=== PATIENT | male | born 1960 | race Caucasian/White ===

== ENCOUNTER 2020-09-06 16:21 | Outpatient (REF) | payer BC, SELFPAY ==
--- NOTE | 2020-09-06 16:27 | XR_ITS ---
EXAMINATION: XR SHOULDER, LEFT CLINICAL INFORMATION: Pain. COMPARISON: None. TECHNIQUE: AP external rotation, Grashey, scapular Y, and axillary views of the left shoulder. FINDINGS: There is no evidence of acute fracture or dislocation of the left shoulder. Calcific tendinitis is present. There is minimal spurring without narrowing of the joint space at the glenohumeral joint. No significant abnormality of the acromioclavicular joint. No widening of the coracoclavicular space. XR/XR shoulder LT min 2V IMPRESSION: Calcific tendinitis of the left shoulder.
== END 2020-09-06 16:22 | disposition home or self-care (01) ==
LOC: HO.XRAY 16:21
PROVIDERS: PCP Naturopath; Visit Provider Naturopath
DX: M75.42 Impingement syndrome of left shoulder (principal); M67.814 Other specified disorders of tendon, left shoulder; M25.512 Pain in left shoulder; M25.50 Pain in unspecified joint; R29.898 Other symptoms and signs involving the musculoskeletal system
CPT/HCPCS: 73030

== ENCOUNTER 2020-10-21 09:55 | Outpatient (REF) | payer BC, SELFPAY ==
--- NOTE | 2020-10-21 | US_ITS ---
EXAMINATION: US EXTRACRANIAL CAROTID DUPLEX, BILATERAL CLINICAL INFORMATION: This is a 60-year-old male with history of hypertension, hyperlipidemia, carotid artery disease. COMPARISON: None TECHNIQUE: Real-time ultrasound and Doppler techniques (integrating B-mode 2-D vascular images, Doppler spectral analysis and color-flow Doppler imaging) were utilized to interrogate the extracranial carotid arteries, the vertebral arteries and proximal subclavian arteries bilaterally. The degree of stenosis is determined by criteria similar to NASCET. FINDINGS: Right Side: 1. There is minimal atherosclerotic plaque seen in the bifurcation/proximal ICA region. 2. The common carotid artery PSV proximally is 178 cm/s and distally 144 cm/s. 3. The proximal internal carotid artery velocities are 73 cm/s systolic and 18 cm/s diastolic. 4. The proximal external carotid artery PSV is 152 cm/s. 5. The vertebral artery shows antegrade flow. 6. The subclavian artery waveforms are normal. Left Side: 1. There is minimal atherosclerotic plaque seen in the bifurcation/proximal ICA region. 2. The common carotid artery PSV proximally is 183 cm/s and distally 141 cm/s. 3. The proximal internal carotid artery velocities are 66 cm/s systolic and 17 cm/s diastolic. 4. The proximal external carotid artery PSV is 125 cm/s. 5. The vertebral artery shows antegrade flow. 6. The subclavian artery waveforms are normal. US/US carotid duplex BI IMPRESSION: 1. RIGHT: Minimal, non-hemodynamically significant stenosis of the proximal right internal carotid artery corresponding to a 0-49% stenosis by velocity criteria. 2. LEFT: Minimal, non-hemodynamically significant stenosis of the proximal left internal carotid artery corresponding to a 0-49% stenosis by velocity criteria.
== END 2020-10-21 09:56 | disposition home or self-care (01) ==
LOC: HO.HMGCX 09:55
PROVIDERS: PCP Naturopath; Visit Provider Naturopath
DX: Z13.6 Encounter for screening for cardiovascular disorders (principal); I25.10 Atherosclerotic heart disease of native coronary artery without angina pectoris; E78.00 Pure hypercholesterolemia, unspecified; Z91.89 Other specified personal risk factors, not elsewhere classified; I10 Essential (primary) hypertension; E78.5 Hyperlipidemia, unspecified
CPT/HCPCS: 93880

== ENCOUNTER 2020-12-09 07:15 | Outpatient (REF) | payer BC, SELFPAY ==
[2020-12-09 09:11] LABS: Anion Gap 17 (12-20); Blood Urea Nitrogen 12 mg/dL (9-16); Carbon Dioxide 24 mmol/L (22-29); Chloride 102 mmol/L (96-108); Cholesterol 160 mg/dL; Estimated Glomerular Filt Rate > 60; Glucose Fasting 83 mg/dL (60-99); HDL Cholesterol 34 mg/dL; LDL Cholesterol Calculated 93 mg/dl; Potassium 4.6 mmol/L (3.3-5.1); Sodium 138 mmol/L (135-145); Triglycerides 169 mg/dL
== END 2020-12-09 07:16 | disposition home or self-care (01) ==
LOC: HO.LAB 07:15
PROVIDERS: PCP Family Medicine; Visit Provider Family Medicine
DX: I10 Essential (primary) hypertension (principal); E78.00 Pure hypercholesterolemia, unspecified; R73.9 Hyperglycemia, unspecified
CPT/HCPCS: 36415; 80051; 80061; 82565; 82947; 84520

== ENCOUNTER 2021-06-05 07:38 | Outpatient (REF) | payer BC, SELFPAY ==
--- NOTE | ~2021-06-05 | XR_ITS ---
EXAMINATION: XR CERVICAL SPINE CLINICAL INFORMATION: Left neck pain COMPARISON: None TECHNIQUE: 6 views of the cervical spine, inclusive of flexion and extension views, were obtained. FINDINGS: There is mild straightening of cervical lordosis. The vertebral heights and alignment is normal. There is mild loss of C6-C7 disc heights with mild ventral spondylosis. Rest the disc heights are normal. No visible acute fracture or dislocation seen. The neural foramina are patent bilaterally. XR/XR cervical spine min 6V IMPRESSION: Degenerative disc changes C6-C7 disc level without acute fracture or dislocation.
== END 2021-06-05 07:39 | disposition home or self-care (01) ==
LOC: HO.XRAY 07:38
PROVIDERS: PCP Family Medicine; Visit Provider Family Medicine
DX: M54.2 Cervicalgia (principal)
CPT/HCPCS: 72052

== ENCOUNTER 2021-10-19 06:29 | Outpatient (REF) | payer BC, SELFPAY ==
[2021-10-19 08:00] LABS: Alanine Aminotransferase 99 U/L (0-40); Anion Gap 13 (12-20); Blood Urea Nitrogen 13 mg/dL (9-16); Carbon Dioxide 24 mmol/L (22-29); Chloride 105 mmol/L (96-108); Cholesterol 187 mg/dL; Estimated Glomerular Filt Rate > 60; Glucose Fasting 107 mg/dL (60-99); HDL Cholesterol 29 mg/dL; LDL Cholesterol Calculated 104 mg/dl; Potassium 4.5 mmol/L (3.3-5.1); Sodium 137 mmol/L (135-145); Triglycerides 271 mg/dL
[2021-10-19 08:24] LABS: Prostate Specific Antigen 0.68 ng/mL (<0.05-4.0)
== END 2021-10-19 06:30 | disposition home or self-care (01) ==
LOC: HO.LAB 06:29
PROVIDERS: PCP Family Medicine; Visit Provider Family Medicine
DX: R35.0 Frequency of micturition (principal); I10 Essential (primary) hypertension; E78.00 Pure hypercholesterolemia, unspecified; R73.9 Hyperglycemia, unspecified; Z79.899 Other long term (current) drug therapy
CPT/HCPCS: 36415; 80051; 80061; 82550; 82565; 82947; 84153; 84460; 84520

== ENCOUNTER 2021-11-10 16:25 | Outpatient (REF) | payer BC, SELFPAY ==
[2021-11-10 17:17] LABS: Alanine Aminotransferase 75 U/L (0-40); Aspartate Amino Transferase 44 U/L (5-37)
== END 2021-11-10 16:26 | disposition home or self-care (01) ==
LOC: HO.LAB 16:25
PROVIDERS: PCP Family Medicine; Visit Provider Family Medicine
DX: E78.00 Pure hypercholesterolemia, unspecified (principal); Z79.899 Other long term (current) drug therapy
CPT/HCPCS: 36415; 84450; 84460

== ENCOUNTER 2022-04-23 06:49 | Outpatient (REF) | payer BC, SELFPAY ==
[2022-04-23 07:55] LABS: Alanine Aminotransferase 56 U/L (0-40); Albumin Level 4.4 g/dL (3.5-5.0); Alkaline Phosphatase 53 U/L (39-117); Aspartate Amino Transferase 33 U/L (5-37); Bilirubin Direct 0.2 mg/dL (0.0-0.5); Bilirubin Total 0.4 mg/dL (0.0-1.0)
== END 2022-04-23 06:50 | disposition home or self-care (01) ==
LOC: HO.LAB 06:49
PROVIDERS: PCP Family Medicine; Visit Provider Family Medicine
DX: K75.81 Nonalcoholic steatohepatitis (NASH) (principal)
CPT/HCPCS: 36415; 80076

== ENCOUNTER 2022-07-23 06:34 | Outpatient (REF) | payer BC, SELFPAY ==
[2022-07-23 07:52] LABS: Estimated Average Glucose 111 mg/dL; Hemoglobin A1c % 5.5 %
[2022-07-23 08:13] LABS: Anion Gap 15 (12-20); Blood Urea Nitrogen 14 mg/dL (9-16); Carbon Dioxide 24 mmol/L (22-29); Chloride 108 mmol/L (96-108); Estimated Glomerular Filt Rate > 60; Glucose Fasting 103 mg/dL (60-99); Potassium 4.9 mmol/L (3.3-5.1); Sodium 142 mmol/L (135-145)
[2022-07-27 16:11] LABS: FIB-ALT 51 U/L (9-46); FIB-Alpha-2-Macroglobulin 194 mg/dL (106-279); FIB-Apolipoprotein A1 142 mg/dL (94-176); FIB-GGT 23 U/L (3-70); FIB-Haptoglobin 188 mg/dL (43-212); FIB-Total Bilirubin 0.5 mg/dL (0.2-1.2); Liver Fibrosis Score 0.21; Liver Fibrosis Stage F0-F1; Nec Inflam Act Grade A0-A1; Nec Inflam Act Score 0.27
== END 2022-07-23 06:35 | disposition home or self-care (01) ==
LOC: HO.LAB 06:34
PROVIDERS: PCP Family Medicine; Visit Provider Family Medicine
DX: I10 Essential (primary) hypertension (principal); R73.9 Hyperglycemia, unspecified; E78.00 Pure hypercholesterolemia, unspecified; K75.81 Nonalcoholic steatohepatitis (NASH)
CPT/HCPCS: 36415; 80051; 81596; 82550; 82565; 82947; 83036; 84520

== ENCOUNTER 2022-07-27 10:50 | Outpatient (REF) | payer BC, SELFPAY ==
[2022-07-27 14:34] LABS: Uric Acid 6.9 mg/dL (3.4-7.0)
== END 2022-07-27 10:51 | disposition home or self-care (01) ==
LOC: HO.10HDL 10:50
PROVIDERS: Visit Provider Family Medicine
DX: M10.9 Gout, unspecified (principal)
CPT/HCPCS: 36415; 84550

== ENCOUNTER 2023-05-08 08:42 | Outpatient (REF) | payer BC, SELFPAY ==
[2023-05-08 10:09] LABS: Estimated Average Glucose 103 mg/dL; Hemoglobin A1c % 5.2 %
[2023-05-08 10:24] LABS: Alanine Aminotransferase 41 U/L (0-40); Anion Gap 13 (12-20); Aspartate Amino Transferase 31 U/L (5-37); Blood Urea Nitrogen 12 mg/dL (9-16); Carbon Dioxide 25 mmol/L (22-29); Chloride 106 mmol/L (96-108); Estimated Glomerular Filt Rate > 60; Glucose Fasting 98 mg/dL (60-99); Potassium 4.3 mmol/L (3.3-5.1); Sodium 140 mmol/L (135-145)
== END 2023-05-08 08:43 | disposition home or self-care (01) ==
LOC: HO.10HDL 08:42
PROVIDERS: Visit Provider Family Medicine
DX: I10 Essential (primary) hypertension (principal); E11.9 Type 2 diabetes mellitus without complications; E78.00 Pure hypercholesterolemia, unspecified; Z79.01 Long term (current) use of anticoagulants
CPT/HCPCS: 36415; 80051; 82550; 82565; 82947; 83036; 84450; 84460; 84520

== ENCOUNTER 2023-09-13 09:58 | Outpatient (REF) | payer BC, SELFPAY ==
[2023-09-13 10:57] LABS: Uric Acid 9.5 mg/dL (3.4-7.0)
== END 2023-09-13 09:59 | disposition home or self-care (01) ==
LOC: HO.10HDL 09:58
PROVIDERS: Visit Provider Family Medicine
DX: M10.9 Gout, unspecified (principal)
CPT/HCPCS: 36415; 84550

== ENCOUNTER 2023-10-01 11:15 | Outpatient (REF) | payer BC, SELFPAY ==
--- NOTE | ~2023-10-01 | XR_ITS ---
EXAMINATION: XR CHEST CLINICAL INFORMATION: Cough COMPARISON: None available. TECHNIQUE: 2 views of the chest were obtained. FINDINGS: No significant abnormality is noted involving the heart, lungs, mediastinum, bony thorax or soft tissues. Symmetrical 1.1 cm nodular densities projected over the mid to lower chest likely represent nipple shadows. Repeat PA view with nipple markers could be obtained. XR/XR chest 2V IMPRESSION: 1. No pneumonia. 2. Symmetrical 1.1 cm nodular densities projected over the mid to lower chest likely represent nipple shadows. Repeat PA view with nipple markers could be obtained.
== END 2023-10-01 11:16 | disposition home or self-care (01) ==
LOC: HO.XRAY 11:15
PROVIDERS: PCP Family Medicine; Visit Provider Family Medicine
DX: R05.9 Cough, unspecified (principal); R06.2 Wheezing
CPT/HCPCS: 71046

== ENCOUNTER 2024-04-24 10:45 | Day surgery (SDC) | payer BC, SELFPAY ==
[2024-04-22 14:34] VITALS: BMI 37.2
--- OUTSIDE RECORDS SUMMARY | 2024-04-24 10:47 | XMS_ITS ---
Author Organization [facility] Address [address] [place] [id number] Care Team Providers Care Supervisor Porcelain Department Name Role Phone Antoine Morrison M.D. Primary Care Provide justice Miller Jr Daren Unavailable ALLERGIES No Known Allergies REASON FOR VISIT Patient presents today for a colon screening MEDICATIONS Medication SIG (Take, Route, Frequency, Duration) Notes Start Date End Date Status Claritin 10 MG 1 tablet Orally Once a day for 30 day(s) Active MiraLax (colon prep) 17 GM/SCOOP mixed with Gatorade or Crystal Light Orally begin at 5:00 p.m. the day before the procedure for 1 day 03/30/2024 Active Adderall XR 40mg Act jaky Robinul-Forte 2mg Ac tive Fish Oil 1000 MG 1 capsule Orally Thr ee times a day for 30 day(s) Active IMMUNIZATIONS Vaccine Route Administration Date Status Comme nts Influenza Unknown 03/30/2024 Refused SOCIAL HISTORY Sex Assigned At : Social History Observation Description Sex Assigned At Unknown Alcohol Screen Question Answer Notes Did you have a drink contain ing alcohol in the past year? Yes Points 3 Interpretation Negative How often did you have 6 or more drinks on one occasion in the past year? Never (0 point) How many drinks did you have on a typical day when you were drinking in the past year? 1 or 2 drinks (0 point) How often did you have a dri nk containing alcohol in the past year? 2 to 3 times a week (3 points) PROBLEMS Problem Type ICD Code Onset Dates Problem Status W/U Status Risk SNOMED Code Notes Problem Colon cancer screening (Z12.11) Active confirmed 438380270 Problem Pre-op evaluation (Z01.818) Active confirmed [id number] Problem Long-term current use of high risk medication other than anticoagulant (Z79.899) Active confirmed 939650863 VITAL SIGNS BMI 37.27 kg/m2 03/30/2024 Blood pressure systolic 000 mm Hg 03/30/20 24 Blood pressure diastolic 00 mm Hg 024 Height 69 in 03/30/2024 Temperature 99.5 degrees Fahrenheit 03/30/20 24 Weight 252 lb 6 oz lbs 03/30/2024 Encounters Encounter Location Date Provider Diagnosis [facility] [address] [place] [address] 03/30/2024 Daren Miller Jr Colon cancer screening Z12.11 ; Pre-op evaluation Z01.818 and Long-term current use of high risk medication other than anticoagulant Z79.899 ASSESSMENTS Encounter Date Diagnosis Assessment Notes Treatment Notes Treatment Clinical Notes 03/30/2024 Colon cancer screening (ICD-10 - Z12.11) Colonoscopy material was printed 03/30/2024 Pre-op evaluation (ICD-10 - Z01.818) 03/30/2024 Long-term current use of high risk medication other than anticoagulant (ICD-10 - Z79.899) PLAN OF TREATMENT Medication Medication Name Sig Start Date Stop Date Notes MiraLax (colon prep) 17 GM/SCOOP mixed with Gatorade or Crystal Light Orally begin at 5:00 p.m. the day before the procedure for 1 day 03/30/2024 Treatment Notes Assessment Notes Colon cancer screening Colonoscopy mater ial was printed Future Test Test Name Order Date COLONOSCOPY 03/30/2024 Next Appt Details Follow Up: 1 Year, Reason: Provider Name:Daren ford Jr, 04/24/2024 11:50:00 AM, [address] [place] [address] , [place], [place], [phone], Progress Notes * Examination Category Sub-Category Detail Notes General Examination GENERAL APPEARANCE: in no ac ely shoshone distress HEAD: normocephalic EYES: sclera non-icteric NECK/THYROID: no lymphadenopathy HEART: S1, S2 normal, no mu rmurs CHEST: normal shape and exp ansion LUNGS: clear to auscultatio n bilaterally ABDOMEN: soft, nontender, non distended, bowel sounds present, no organomegaly SKIN: anicteric EXTREMITIES: no clubbing, cyanosi s, or edema PSYCH: cognitive function i ntact ORAL CAVITY: mucosa moist
--- OUTSIDE RECORDS SUMMARY | 2024-04-24 10:47 | XMS_ITS | Continuity of Care Document ---
Author Organization [facility] [address], [address] [place] [address]- Care Team Providers Care Calcine Furnace Tender Name Role Phone Marvin Farnsworth MD Primary Care Physician Encounter [facility] Date(s): 05/17/20 - 05/24/[address], [address] [place] [address]- [facility] Attending Physician: Gloria Rogers MD Referring Physician: Marvin Farnsworth MD Allergies, Adverse Reactions, Alerts Substance Reaction Severity Status NKA Active Medications elppa CoQ10 50 mg oral capsule 1 capsule = 50 mg, By Mouth, Daily, # 30 capsule, 0 Refills, Maintenance, 05/17/20 13:09:00 EDT, Capsule Start Date: 05/17/20 Status: Ordered lisinopril 5 mg oral tablet 5 mg, 1, tablet, By Mouth, Daily, # 30 tablet, Refills 0, Maintenance, 05/17/20 13:08:00 EDT Start Date: 05/17/20 Status: Ordered Multivitamin Daily, 0 Refills, Maintenance, 05/17/20 13:09:00 EDT Start Date: 05/17/20 Status: Ordered Robinul 1 mg oral tablet 1, tablet, By Mouth, 3 times a day, # 21 tablet, Refills 0, Maintenance, 05/17/20 13:07:00 EDT Start Date: 05/17/20 Stop Date: 05/24/20 Status: Ordered simvastatin 5 mg oral tablet 1 tablet = 5 mg, By Mouth, Daily at bedtime, # 30 tablet, 0 Refills, Maintenance, 05/17/20 13:08:00EDT, Tablet Start Date: 05/17/20 Status: Ordered Turmeric 500 mg oral capsule 1 capsule = 500 mg, By Mouth, Daily, # 60 capsule, 0 Refills, Maintenance, 05/17/20 13:09:00 EDT, Capsule Start Date: 05/17/20 Status: Ordered Vital Signs Most recent to oldest [Reference Range]: 1 Height 172.70 cm (05/17/20 1:09 PM) Weight 113 kg (05/17/20 1:09 PM) Body Mass Index [18.5-24.99] 37.89 *>HHI* (05/17/20 1:09 PM) Social History Social History Type Response Smoking Status Cigars or pipes but not daily within last 30 days; Other: occational cigar smoker; entered on: 05/17/20 Sex
--- OUTSIDE RECORDS SUMMARY | 2024-04-24 10:47 | XMS_ITS ---
Author Organization [facility] Address [address] [place] [id number] Care Team Providers Care Annual Giving Director Name Role Phone Prince Humphrey [place] Primary Care Provide r Rodrigo Miller Jr, Daren Unavailable REASON FOR VISIT screening Encounters Encounter Location Date Provider Diagnosis [facility] Outpatient [address] [place] [phone] 04/24/2024 Daren Miller Jr PLAN OF TREATMENT Next Appt Details Provider Name:Daren ford Jr, 04/24/2024 11:50:00 AM, [address], [place], [phone],
--- OUTSIDE RECORDS SUMMARY | 2024-04-24 10:47 | XMS_ITS | Patient Health Record ---
Author Organization [facility] Address [address] [place] [address] Care Team Providers Care Heel Shaver Name Role Phone Antoine Morrison M.D. Primary Care Provide Daren Vazquez Jr Unavailable ALLERGIES No Known Allergies REASON FOR REFERRAL No Information MEDICATIONS Medication SIG (Take, Route, Frequency, Duration) Notes Start Date End Date Status Fish Oil 1000 MG 1 capsule Orally Thr ee times a day for 30 day(s) Active Claritin 10 MG 1 tablet Orally Once a day for 30 day(s) Active MiraLax (colon prep) 17 GM/SCOOP mixed with Gatorade or Crystal Light Orally begin at 5:00 p.m. the day before the procedure for 1 day 03/30/2024 Active Adderall XR 40mg Act jaky Robinul-Forte 2mg Ac tive IMMUNIZATIONS Vaccine Route Administration Date Status Comme nts Influenza Unknown 03/30/2024 Refused SOCIAL HISTORY Sex Assigned At : Social History Observation Description Sex Assigned At Unknown PROBLEMS Problem Type ICD Code Onset Dates Problem Status W/U Status Risk SNOMED Code Notes Problem Colon cancer screening (Z12.11) Active confirmed [id number] Problem Long-term current use of high risk medication other than anticoagulant (Z79.899) Active confirmed 876081529 Problem Pre-op evaluation (Z01.818) Active confirmed [id number] VITAL SIGNS Temperature 99.5 degrees Fahrenheit 03/30/2024 Blood pressure diastolic 00 mm Hg 03/30/2024 Height 69 in 03/30/2024 Blood pressure systolic 000 mm Hg 03/30/2024 Weight 252 lb 6 oz lbs 03/30/2024 BMI 37.27 kg/m2 03/30/2024 Encounters Encounter Location Date Provider Diagnosis [facility] Out[place] [address] [place] [id number] 04/24/2024 Daren Miller Jr [facility] [address] [place] [address] 03/30/2024 Daren Miller Jr Colon cancer screening [...] anticoagulant (ICD-10 - Z79.899) PLAN OF TREATMENT Future Test Test Name Order Date COLONOSCOPY 08/28/2013 COLONOSCOPY 03/30/2024 Next Appt Details Provider Name:Daren ford Jr, 04/24/2024 11:50:00 AM, [address] [facility] , [place], [place], [phone], Insurance Providers Payer Name Payer Address Payer Phone Subscriber Number Group Number Insured Name Patient Relationship to Insured Coverage Start Date Coverage End Date [facility] [address] [place] [address] [id number] AIMEE AGOSTO Self - patient is the insured MEDICAL (GENERAL) HISTORY Medical History History ICD Code hypertension hyperhidrosis elevated cholesterol ADD Colonoscopy 12/04, normal, ten-year follo wup Surgical History Surgery Date(Month/Year) appendectomy 1998 shoulder surgery-right 2007 knee surgery-left s-2003 2 knee surgery meniscus shoulder replacment left L5-S1 disc surgery
--- OUTSIDE RECORDS SUMMARY | 2024-04-24 10:47 | XMS_ITS | Continuity of Care Document ---
Author Organization [facility] Address [address] [place] [address]- Care Team Providers Care Nurse Orthopaedic Name Role Phone Marvin Farnsworth MD Primary Care Physician [phone] [facility] Date(s): 01/25/22 - 02/24/22 [facility] [address] [place] [address]- Allergies, Adverse Reactions, Alerts No Known Allergies Medications elppa CoQ10 50 mg oral capsule 1 capsule = 50 mg, By Mouth, Daily, # 30 capsule, 0 Refills, Maintenance, 05/17/20 13:09:00 EDT, Capsule Start Date: 05/17/20 Status: Ordered lisinopril 5 mg oral tablet 10 mg, By Mouth, Daily, # 30 tablet, Refills 0, Maintenance, 05/17/20 13:08:00 EDT Start Date: 05/17/20 Status: Ordered Multivitamin Daily, 0 Refills, Maintenance, 05/17/20 13:09:00 EDT Start Date: 05/17/20 Status: Ordered oxyCODONE 5 mg oral tablet See Instructions, 1 tablet By Mouth Every 4-6 hours, Refills 0, Tot. Refills 0, Maintenance, 06/27/21 8:56:00 EDT, Instructions Replace Required Details, Partial fill upon patient request if the prescription is for a schedule II opioid drug. Start Date: 06/27/21 Status: Ordered Robinul 1 mg oral tablet 1, tablet, By Mouth, 3 times a day, # 21 tablet, Refills 0, Maintenance, 05/17/20 13:07:00 EDT Start Date: 05/17/20 Stop Date: 05/24/20 Status: Ordered simvastatin 5 mg oral tablet = 40 mg, By Mouth, Daily at bedtime, # 30 tablet, 0 Refills, Maintenance, 05/17/20 13:08:00 EDT, Tablet Start Date: 05/17/20 Status: Ordered Social History Social History Type Response Smoking Status Cigars or pipes but not daily within last 30 days; Other: occational cigar smoker; entered on: 05/17/20 Sex
--- OUTSIDE RECORDS SUMMARY | 2024-04-24 10:47 | XMS_ITS | Continuity of Care Document ---
Author Organization [facility] [address] [place] [address]- Care Team Providers Care Director Geothermal Operations Name Role Phone Marvin Farnsworth MD Primary Care Physician Encounter [facility] [id number] Date(s): 05/17/20 - 06/16/[address], [address] [place] [address]- [facility] Attending Physician: Admtr, Ar8 Admitting Physician: Admtr, Ar8 Referring Physician: Admtr, Ar8 Allergies, Adverse Reactions, Alerts Substance Reaction Severity [...] EDT, Capsule Start Date: 05/17/20 Status: Ordered Social History Social History Type Response Smoking Status Cigars or pipes but not daily within last 30 days; Other: occational cigar smoker; entered on: 05/17/20 Sex
--- OUTSIDE RECORDS SUMMARY | 2024-04-24 10:48 | XMS_ITS | Continuity of Care Document ---
Author Organization [facility] Address [address] [facility] [place] [address]- Care Team Providers Care Associate Professor Of Library Science Name Role Phone Antoine Morrison MD Primary Care Physici an Encounter 10/24/23 - 10/31/23 [facility] [address], [address] [place] [address]- Attending Physician: Antoine Morrison MD Admitting Physician: Antoine Morrison MD Referring Physician: Antoine Morrison MD Allergies, Adverse Reactions, Alerts No Known Allergies [...] EDT, Tablet Start Date: 05/17/20 Status: Ordered Results Radiology Reports * Exam Date Time Procedure Performing Provider Status 10/24/23 2:[address] Heart W/O Dye Trey Eval Odilia Tavares; Auth (Verified) Notes: (CT Heart W/O Dye Trey Eval) Reason For Exam: E78.5 LIPIDEMIA RESULT: CT Heart W/O Dye Trey Eval CT Heart W/O Dye Trey Eval INDICATION: Reason: E78.5 LIPIDEMIA; Clinical Question(s): Other:. Male of age 63 years, race White COMPARISON: None TECHNIQUE: Coronary artery Calcium Scoring. After a localizing geoduck diver image was obtained, an ECG-gated noncontrast exam was obtained of the heart in late diastole. The region of interest was limited to the heart in order to optimize image quality. Weight-based protocol using automatic tube modulation was used to optimize exposure parameters. A Qbaka 64 scanner was used, with Agatston scoring performed using Neronote (Photoblog) web-based software. CTDIvol Body: 11.32 mGy, DLP Body: 170 mGy*cm. FINDINGS: Coronary Calcium Scoring Summary: Left Main: score 0. LAD: score 98. Circumflex: score 0. Right: score 350. TOTAL: score 449. Non-coronary Findings: No significant findings. IMPRESSION: The Agatston coronary calcium score is 449. The Multi-Ethnic Study of Atherosclerosis (WALKER) trial on-line calculator can be used to determine the probability of having coronary calcification and the calcium score percentile for subjects basedon age, gender and race/ethnicity who are free of clinical cardiovascular disease and treated diabetes: http://www.walker-nhlbi.org/Calcium/input.aspx Within this cohort, the probability of having coronary calcification is 72 %. The observed calcium score is at the 86th percentile. WSN: [id number] Ordering Physician: Antoine Morrison Dictated By: Antoine Willson MD Dictated Date/Time: 10/25/23 5:06 pm Reviewed By: Antoine Willson MD Signed By: Antoine Willson MD Signed Date/Time: 10/25/23 5:06 pm Transcribed By: ELAYNE Transcribed Date/Time: 10/25/23 5:05 pm Social History Social History Type Response Smoking Status Cigars or pipes but not daily within last 30 days; Other: occational cigar smoker; entered on: 05/17/20 Sex Patient Care team information Care Team Personnel Name: Anotine Morrison MD Position: Reference Physician Member Role: PCP Address: Address: [address] [place] [address]- Care Team Related Persons Name: MANJIT AGOSTO Address: home [address] [place] [id number]
--- OUTSIDE RECORDS SUMMARY | 2024-04-24 10:48 | XMS_ITS | Continuity of Care Document ---
Author Organization [facility] Address [address] [place] [address], [address] [place] [address]- Care Team Providers Care Freight Car Cleaner Name Role Phone Javad SKELTON, Marvin Otero Primary Care Physician [phone] Encounter [facility] Date(s): 04/07/20 - 05/07/20 [facility] [address] [place] [address], [address] [place] [address]- [facility] Allergies, Adverse Reactions, Alerts Substance Reaction Severity Status NKA Active
--- OUTSIDE RECORDS SUMMARY | 2024-04-24 10:48 | XMS_ITS | Patient Health Record ---
Author Organization [facility] Address [address] [place] [address] Care Team Providers Care Russian Teacher Name Role Phone Marvin Farnsworth MD Primary Care Provider Unavailab Katelyn Price Unavailable [phone] ALLERGIES No Known Allergies REASON FOR REFERRAL No Information MEDICATIONS Medication SIG (Take, Route, Frequency, Duration) Notes Start Date End Date Status Lisinopril 10 MG 1 tablet Orally Once a day for 30 day(s) Active Simvastatin 40 MG 1 tablet in the even ing Orally Once a day for 30 day(s) Active Ciclopirox Olamine 0.77 % 1 application Externally Twice a day for 30 days 05/08/2022 Active Glycopyrrolate 2 MG 1 tablet Orally Once a day for 30 day(s) Active SOCIAL HISTORY Tobacco Use: Social History Observation Description Date Details (start date - stop date) Never Smoker NA - NA Sex Assigned At : Social History Observation Description Sex Assigned At Unknown Tobacco Use/Smoking Question Answer Notes Are you a: nonsmoker Additional Findings: Tobacco Non-User Current no n-smoker Alcohol Screen Question Answer Notes Did you have a drink contain ing alcohol in the past year? Yes How often did you have a dri nk containing alcohol in the past year? 2 to 4 times a month (2 points) Points 2 Interpretation Negative Tobacco use other than smoking: Question Answer Notes Are you an other tobacco user? 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 [id number] PLAN OF TREATMENT Pending Test Test Name Order Date X ray : Foot, right 3V 08/09/2022 02400, [id number] INJECT TENDON ORIGIN/INSER T 09/13/2022 Insurance Providers Payer Name Payer Address Payer Phone Subscriber Number Group Number Insured Name Patient Relationship to Insured Coverage Start Date Coverage End Date [facility] [address] [place] [address] [id number] Oliver Stanford Self - patient is the insured MEDICAL (GENERAL) HISTORY Medical History History ICD Code Chicken pox High blood pressure Measles Mumps Surgical History Surgery Date(Month/Year) appendectomy 2000 laminectomy 2013 left knee, meniscus 1982, 1995, 2004 Right rotator cuff tear repair 2002, 200 4 Left rotator cuff tear repair 2021
--- NOTE | 2024-04-24 10:55 | MHC.SHP ---
Pre-Procedural Eval Section A - 24 Hr Update-Section A only Date of Service: 04/24/24 The patient is an INPATIENT: No Changes since office visit: No Cold of Flu in the past 2 weeks, No New Medical Problems, No Changes in Medication and No Patient answered all questions The patient has been examined within 24 hours of the surgical procedure. The History & Physical has been completed within 30 days and I have reviewed it.: Yes Section B - Complete if H&P > 30 days Chief Complaint: Encounter for screening for malignant neoplasm of Allergies: Allergies Allergy/AdvReac Type Severity Reaction Status Date / Time No Known Allergies Allergy Verified 04/22/24 14:31 Plan I have reviewed the history and physical and performed a pertinent physical examination on my patient. No changes have occurred unless specified. Time Spent With Patient Time: Total time managing care of this patient today ____ minutes.
[2024-04-24 10:57] VITALS: BMI 35.6
--- NOTE | 2024-04-24 10:57 | P.CONAN_ITS ---
HPI - Anesthesia Eval Consult details Narrative: for colonoscopy [facility] Past Medical History Medical History ADD (attention deficit disorder) Elevated cholesterol Hyperhidrosis HTN (hypertension) Family History Family history of problems with anesthesia: No Surgical History Surgical History Hx of lumbosacral spine surgery Hx of shoulder replacement Hx of knee surgery History of shoulder surgery Hx of appendectomy H/O colonoscopy History of Problems with Anesthesia: No Social History Social History Patient Tobacco Use Status: Never used Tobacco Advance Directives: No Advance Directives Information Provided: Yes Meds Allergies Allergy/AdvReac Type Severity Reaction Status Date / Time No Known Allergies Allergy Verified 04/22/24 14:31 Home Medications ?Medication ?Instructions ?Recorded ?Confirmed ?Last Taken ?Type Adderall XR 40 mg PO 04/22/24 Unknown History glycopyrrolate 2 mg tablet 2 mg PO TID 04/22/24 04/22/24 Unknown History (Andreina Kong) loratadine 10 mg tablet 10 mg PO DAILY 04/22/24 04/22/24 Unknown History omega 1-jfu-fom-fish oil 1,000 mg 1 cap PO TID 04/22/24 04/22/24 Unknown History (120 mg-180 mg) capsule (Fish Oil) Exam Height,Weight and Vital Signs: Height 5 ft 9 in Weight 114.305 kg Airway Mallampati Class: II TM Dist: >3cm Neck ROM: Full Heart: rrr Lungs: cta Assessment and Plan Assessment Anesthesia Assessment: Anesthesia Plan Discussed Final Anesthetic Review Family History of Problems with Anesthesia: No History of Problems with Anesthesia: No NPO: Yes ASA Class: II Final Preanesthetic Review: No Changes in Pt Med Stat, Meds/Allgs Chart Reviewed, Consent Obtained/Reviewed and Anes Risks/Benef Reviewed Patient Risk: Intermediate Procedure Risk: Low Anesthetic Plan Anesthetic Plan: MAC: Disposition: Standard PACU
[2024-04-24 11:25] VITALS: BP 165/93; PULSE 68; RESP 16; TEMP 36.1; O2SAT 96
[2024-04-24] MEDS: Lactated Ringers 1,000 ML 80 ML IVCONT (11:29)
[2024-04-24 12:08] VITALS: BP 142/84; PULSE 62; RESP 16; TEMP 36.1; O2SAT 96
[2024-04-24 12:25] VITALS: BP 138/82; PULSE 64; RESP 18; TEMP 36.1; O2SAT 99
--- NOTE | 2024-04-24 13:01 | OP_ITS ---
DATE OF SERVICE: 04/24/2024 SURGEON: Daren Miller MD INDICATIONS: Colon cancer screening. PREOPERATIVE DIAGNOSIS: POSTOPERATIVE DIAGNOSIS: PROCEDURE PERFORMED: Colonoscopy to the terminal ileum with snare polypectomy and biopsy. ESTIMATED BLOOD LOSS: COMPLICATIONS: ANESTHESIA: Monitored anesthesia care. ASSISTANTS: SPECIMENS: DESCRIPTION OF PROCEDURE: A history and physical was performed. The risks and benefits of the procedure were explained to the patient and informed consent was obtained. The patient was placed in the left lateral decubitus position. A digital rectal exam was performed and was found to be normal. The Olympus pediatric video colonoscope was introduced into the rectum and advanced to the cecum. The cecum was identified by transillumination, palpation, and identification of ileocecal valve. Examination was performed and the scope was removed. He tolerated the procedure well and was returned to recovery area in stable condition. FINDINGS: The terminal ileum was examined and appeared normal. The visualized colonic mucosa was normal. The quality of the prep was good. Three polyps were identified. Polyps at 75 cm and the rectum measured less than 5 mm. These were removed with biopsy forceps. A polyp at 40 cm was removed with a cold snare measuring approximately 6 mm. There was mild sigmoid diverticulosis. Retroflexed examination showed internal hemorrhoids. IMPRESSION: Colon polyps. RECOMMENDATION: Follow up the biopsy results. MD OMID Walls/PEARL / [id number]
== END 2024-04-24 13:15 | disposition home or self-care (01) ==
PROVIDERS: PCP Naturopath; Visit Provider Internal Medicine Gastroenterology
PROC: 0DJD8ZZ Inspection of Lower Intestinal Tract, Via Natural or Artificial Opening Endoscopic (ICD-10-PCS; CPT 45378; principal; 2024-04-24 12:40)
DX: Z12.11 Encounter for screening for malignant neoplasm of colon (principal); Z83.719 Family history of colon polyps, unspecified; D12.4 Benign neoplasm of descending colon; D12.5 Benign neoplasm of sigmoid colon; K62.1 Rectal polyp; K57.30 Diverticulosis of large intestine without perforation or abscess without bleeding; K64.8 Other hemorrhoids; I10 Essential (primary) hypertension; E78.00 Pure hypercholesterolemia, unspecified; R61 Generalized hyperhidrosis; F98.8 Other specified behavioral and emotional disorders with onset usually occurring in childhood and adolescence; Z79.899 Other long term (current) drug therapy; Z98.890 Other specified postprocedural states
CPT/HCPCS: 45385; 45380; 88305; J2704